=== PATIENT | male | born 1995 | race Caucasian/White ===

== ENCOUNTER 2024-04-21 02:35 | Inpatient (IN) | payer OTHER, SELFPAY ==
[2024-04-21] VITALS (31 sets, daily range): BP systolic 148–166; BP diastolic 80–102; PULSE 57–88; TEMP 36.4–36.8; O2SAT 65–100; BMI 27.4; BMI 26.3
--- NOTE | 2024-04-21 | XR_ITS ---
The [address] [address] Patient Name: MOHINI CABELLO MRN: [id number] date: 1995 Sex: M Assigned Patient Location: MS Current Patient Location: MS Accession/Order Number: [id number] Exam Date: 04/21/2024 16:53 Report Date: 04/21/2024 17:31 At the request of: SHAIKH LISSY Procedure: XR foreign body eye FUNMILAYO EXAM: XR foreign body eye FUNMILAYO HISTORY: foreign body for MRI COMPARISON: None. TECHNIQUE: Lateral, water's view orbits/facial bones. FINDINGS: No opaque orbital foreign body. Minor sinus mucosal thickening without fluid level. No suspicious bone lesion. XR/XR foreign body eye FUNMILAYO IMPRESSION: Negative for opaque orbital foreign body. Electronically authenticated by: STEVEN ARIAS Date: 04/21/2024 17:31
--- NOTE | 2024-04-21 02:51 | ECG_ITS ---
The [facility] Test Date: 2024-04-21 Pat Name: MOHINI CABELLO Department: Room: - Gender: Male [employer]: : 1995 Requested By: LINDY HURST Order Number: [id number] Reading MD: LINDY HURST Measurements Intervals [place] Rate: 67 P: 44 MN: 168 QRS: 50 QRSD: 84 T: 25 QT: 376 QTc: 392 Interpretive Statements 1100 Sinus rhythm 9110 normal ECG Compared to ECG 11/01/2022 12:20:29 No significant changes Electronically Signed On 04-21-2024 18:56:07 EDT by LINDY HURST
--- NOTE | 2024-04-21 02:52 | CT_ITS ---
The [address] [address] Patient Name: MOHINI CABELLO MRN: [id number] date: 1995 Sex: M Assigned Patient Location: ER Current Patient Location: ER Accession/Order Number: [id number] Exam Date: 04/21/2024 03:00 Report Date: 04/21/2024 03:20 At the request of: LION SOUZA Procedure: CT stroke head/brain wo con INDICATION: 29 years old; Male. Right leg weakness. History of prior surgery for intracranial tumor at 6 years of age. TECHNIQUE: CT Head (ax/cor/sag reformats). Ionizing radiation dose reduced via iterative reconstruction/FBP blend and body size kV/mA adjustment. Comparison: None FINDINGS: POSTOPERATIVE CHANGES: Patient is status post prior occipital and suboccipital craniectomy with encephalomalacia in the cerebellum. There is extensive dystrophic calcification within the cerebellum. This finding would be consistent with remote surgery and radiation therapy for previously described brain tumor. BRAIN PARENCHYMA: No intraparenchymal or extra-axial hemorrhage. No mass effect. No midline shift or herniation. Postoperative and posttreatment changes in the cerebellum as described above. Normal magdaleno/white differentiation. VENTRICLES/EXTRA-AXIAL SPACES: Ventricles and extra ventricular spaces are within normal limits. There is enlargement of the fourth ventricle consistent with postsurgical change with adjacent encephalomalacia. SINUSES/MASTOIDS: There is mucoperiosteal thickening throughout the paranasal sinuses. The maxillary sinuses are not completely included. Opacification of posterior ethmoid air cells is seen. Mastoids and middle ears are clear. MSK: No displaced or depressed calvarial fracture. Postoperative changes consistent with prior occipital/suboccipital decompression. OTHER: No hyperdense intraluminal thrombus is present. CT/CT stroke head/brain wo con IMPRESSION: 1. No acute intracranial abnormality. No hemorrhage or mass effect. 2. Findings consistent with postsurgical and posttreatment changes involving the cerebellum with prior occipital and suboccipital craniectomy, encephalomalacia within the cerebellum with enlargement of the fourth ventricle, and extensive dystrophic calcification in the cerebellar hemispheres. Electronically authenticated by: FREDY TRIPATHI Date: 04/21/2024 03:20
--- NOTE | 2024-04-21 02:52 | XR_ITS ---
The [address] [address] Patient Name: MOHINI CABELLO MRN: [id number] date: 1995 Sex: M Assigned Patient Location: ER Current Patient Location: MS Accession/Order Number: [id number] Exam Date: 04/21/2024 03:10 Report Date: 04/21/2024 06:58 At the request of: LION SOUZA Procedure: XR chest 1V EXAM: XR chest 1V HISTORY: poss cva COMPARISON: Chest radiographs dated 11/01/2022. TECHNIQUE: One view of the chest was obtained. FINDINGS: The cardiac silhouette is normal in size. There are mild left basilar opacities. There is no significant pneumothorax or pleural effusion. No acute osseous abnormality is seen. XR/XR chest 1V IMPRESSION: 1. Mild left basilar opacities are felt to represent atelectasis though aspiration changes and/or early infection could be present. Electronically authenticated by: Mello JOHNSON Date: 04/21/2024 06:58
[2024-04-21 02:54] LABS: Glucometer 166 mg/dL (74-106)
--- NOTE | 2024-04-21 02:58 | ED_ITS ---
HPI HPI - General Adult General Chief complaint: Headache Stated complaint: dizzy headache Time Seen by Provider: 04/21/24 02:37 Source: patient Mode of arrival: Wheelchair Limitations: no limitations History of Present Illness HPI narrative: 29-year-old male presents to the emergency department for a 4-hour history of weakness in his right leg. He states has been like this for the past 4 hours continuously and he does not have a headache. He has some tingling in his right arm but his right leg was weak and he was not able to stand and walk. He is brought in by his . 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 He has had no symptoms like this recently. No fever or trauma. He stopped his blood pressure medicine a few months ago. 5:00am more information has turned up. The patient now admits that she has been having symptoms like this all week, the last 5 or 6 days. He states that he would be walking and would accidentally bump his shoulder on the frame of the doorway. Also at 11:00 in the morning yesterday he had difficulty reaching for a bag at a drive-through fast food restaurant. Related Data Home Medications ?Medication ?Instructions ?Recorded ?Confirmed No Known Home Medications 04/21/24 04/21/24 Allergies Allergy/AdvReac Type Severity Reaction Status Date / Time No Known Drug Allergies Allergy Verified 04/21/24 02:45 Opioid HPI Opioid Management Most Recent Opioid Data: Last Pain Scale 8 04/21/24 03:55 Last ED Pain Assessment 04/21/24 03:30 Review of Systems ROS Narrative A ten point review of systems is negative except as noted above. Exam Narrative Exam Narrative: Nurses note and vital signs reviewed and patient is not hypoxic. General: The patient appears in no apparent distress. Patient is resting comfortably on cart. Skin: Warm, dry, no pallor noted. There is no rash noted. Head: Normocephalic, atraumatic Eye: Normal conjunctiva, no drainage, EOMI. PERRL Ears, Nose, Mouth, and Throat: oral mucosa is moist. Cardiovascular: Regular Rate and Rhythm Respiratory: Patient is in no distress, no accessory muscle use, lungs are clear to auscultation, no wheezing, rales or rhonchi Back: non-tender GI: Soft and nontender Musculoskeletal: The patient has no evidence of calf tenderness, no pitting edema, symmetrical pulses noted bilaterally Neurological: A&O x4, his speech is slightly slow and slightly thick. Hand g rasp, biceps, tricep strength is 5 out of 5 and symmetric. He has slightly diminished strength in all muscle groups in his right leg compared to the left. Psychiatric: Cooperative NIH score is 4. He has 1 point for right arm drift, 1 point for right leg drift, 2 points for limb ataxia, and 1 point for dysarthria. Constitutional Vital Signs, click to edit/add: Last Vital Signs Temp 97.5 F L 04/21/24 02:39 Pulse 70 04/21/24 03:40 Resp 12 04/21/24 03:40 BP 164/92 H 04/21/24 03:40 Pulse Ox 100 04/21/24 03:40 O2 Del Method Room Air 04/21/24 03:40 Course Vital Signs Vital signs: Vital Signs Temperature 97.5 F L 04/21/24 02:39 Pulse Rate 69 04/21/24 02:39 Respiratory Rate 18 04/21/24 02:39 Blood Pressure 160/100 H 04/21/24 02:39 Pulse Oximetry 100 04/21/24 02:39 Oxygen Delivery Method Room Air 04/21/24 02:39 Temperature 97.5 F L 04/21/24 02:39 Pulse Rate 70 04/21/24 03:40 Respiratory Rate 12 04/21/24 03:40 Blood Pressure 164/92 H 04/21/24 03:40 Pulse Oximetry 100 04/21/24 03:40 Oxygen Delivery Method Room Air 04/21/24 03:40 Medical Decision Making MDM Narrative Medical decision making narrative: Initially the patient reported that the symptoms began at 11 PM but it turns out he has been having symptoms like this for multiple days. CT brain shows postoperative changes but no acute findings. CTA was reviewed by teleneurologist from [facility]. He does not see any significant stenosis. Official reading from the radiologist is pending at the time of this dictation. The patient will be admitted at his request here and will have MRI later today. Findings are discussed with the patient and his . There is no indication for thrombolytic, his symptoms have been present for a few days.. Differential Diagnosis Differential Diagnosis: Intracranial hemorrhage, stroke Lab Data Lab results reviewed: Yes I reviewed the patient's lab results Labs: Lab Results 04/21/24 04/21/24 04/21/24 Range/Units 02:53 03:20 03:45 WBC 6.8 (4.0-11.0) 10^3/uL RBC 5.09 (4.70-6.10) 10^6/uL Hgb 14.4 (14.0-18.0) g/dL Hct 44.4 (42.0-54.0) % MCV 87.2 (80.0-94.0) fL MCH 28.3 (25.9-34.0) pg MCHC 32.4 (29.9-35.2) g/dL RDW 12.9 (11.0-15.0) % Plt Count 222 (150-450) 10^3/uL MPV 9.8 (9.5-13.5) fL Neut % (Auto) 54.5 (43.0-75.0) % Lymph % (Auto) 31.6 (20.5-60.0) % [place] % (Auto) 6.9 (1.7-12.0) % Eos % (Auto) 6.4 (0.9-7.0) % Baso % (Auto) 0.3 (0.2-2.0) % Neut # (Auto) 3.7 (1.4-6.5) 10^3/uL Lymph # (Auto) 2.1 (1.2-3.8) 10^3/uL [place] # (Auto) 0.5 (0.3-0.8) 10^3/uL Eos # (Auto) 0.4 (0.0-0.7) 10^3/uL Baso # (Auto) 0.0 (0.0-0.1) 10^3/uL Abs Immat Gran (auto) 0.02 (0.00-0.03) 10^3/uL Imm/Tot Granulo (auto) 0.3 (0.0-0.5) % PT 10.4 (9.0-11.6) sec INR 0.98 APTT 29.1 (22.3-36.2) sec Sodium 137 (136-145) mmol/L Potassium 4.0 (3.5-5.1) mmol/L Chloride 100 (98-107) mmol/L Carbon Dioxide 27.8 (21.0-32.0) mmol/L Anion Gap 13.2 BUN 13.0 (7.0-18.0) mg/dL Creatinine 0.96 (0.70-1.30) mg/dL Est GFR ( Amer) >60 (>=60) Est GFR (Non-Af Amer) >60 (>=60) BUN/Creatinine Ratio 13.5 Glucose 133 H (74-106) mg/dL Calcium 9.2 (8.5-10.1) mg/dL POC Glucose 166 H (74-106) mg/dL Imaging Data CT scan - head: Radiologist's impression: ITS Impressions Brain CT 04/21/24 02:52 IMPRESSION: 1. No acute intracranial abnormality. No hemorrhage or mass effect. 2. Findings consistent with postsurgical and posttreatment changes involving the cerebellum with prior occipital and suboccipital craniectomy, encephalomalacia within the cerebellum with enlargement of the fourth ventricle, and extensive dystrophic calcification in the cerebellar hemispheres. Electronically authenticated by: FREDY TRIPATHI Date: 04/21/2024 03:20 ECG Data Attestation: I personally reviewed and interpreted this ECG as follows: (EKG on my interpretation shows normal sinus rhythm with a rate of 67 and no acute change) Discharge Plan Discharge Chief Complaint: Headache Clinical Impression: Right leg weakness Patient Disposition: Admitted As Inpatient Time of Disposition Decision: 04:55 Condition: Fair
--- NOTE | 2024-04-21 03:25 | CT_ITS ---
The [address] [address] Patient Name: MOHINI CABELLO MRN: [id number] date: 1995 Sex: M Assigned Patient Location: ER Current Patient Location: MS Accession/Order Number: [id number] Exam Date: 04/21/2024 03:45 Report Date: 04/21/2024 07:08 At the request of: LION SOUZA Procedure: CT angio head EXAM: CT angio neck, CT angio head HISTORY: right leg weak COMPARISON: CT head performed contemporaneously and reported separately.. TECHNIQUE: Postcontrast CTA imaging of the head and neck was performed with coronal and sagittal reformats. Maximum intensity projection and 3-D reformats were performed on a separate workstation. NASCET criteria was utilized. This CT exam was performed using one or more of the following dose reduction techniques: Automated exposure control, adjustment of the MA and/or kV according to patient size, or use of iterative reconstruction technique. FINDINGS: Aortic arch: Imaged portion shows no evidence of aneurysm. No significant stenosis of the major origins of the major arch vessels. Right carotid system: No evidence of significant (50% or greater) stenosis or occlusion. Left carotid system: No evidence of significant (50% or greater) stenosis or occlusion. Vertebral arteries: Left vertebral artery dominance. No evidence of significant (50% or greater) stenosis or occlusion. Anterior circulation: No evidence of aneurysm, significant stenosis, or occlusion. Vertebrobasilar system: No evidence of aneurysm. 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 The posterior inferior cerebellar artery is not visualized. This may be chronic in nature given associated postsurgical change of the cerebellum with dystrophic calcifications and prior suboccipital craniotomy. Venous sinuses: Grossly patent. Additional findings: Visualized portion of the lungs are clear. Moderate mucosal thickening of the paranasal sinuses. CT/CT angio head IMPRESSION: 1. 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 The right posterior inferior cerebellar artery is not visualized. This may be chronic in nature given associated postsurgical change of the cerebellum with dystrophic calcifications and prior suboccipital craniotomy. 2. No large vessel occlusion, hemodynamically significant stenosis or aneurysm involving the remaining neck or intracranial arteries. Electronically authenticated by: MIMI PERRY Date: 04/21/2024 07:08
--- NOTE | 2024-04-21 03:25 | CT_ITS ---
The [address] [address] Patient Name: MOHINI CABELLO MRN: [id number] date: 1995 Sex: M Assigned Patient Location: ER Current Patient Location: MS Accession/Order Number: [id number] Exam Date: 04/21/2024 03:45 Report Date: 04/21/2024 07:08 At the request of: LION SOUZA Procedure: CT angio neck EXAM: CT angio neck, CT angio head HISTORY: right leg weak COMPARISON: CT head performed contemporaneously and reported separately.. TECHNIQUE: Postcontrast CTA imaging of the head and neck was performed with coronal and sagittal reformats. Maximum intensity projection and 3-D reformats were performed on a separate workstation. NASCET criteria was utilized. This CT exam was performed using one or more of the following dose reduction techniques: Automated exposure control, adjustment of the MA and/or kV according to patient size, or use of iterative reconstruction technique. FINDINGS: Aortic arch: Imaged portion shows no evidence of aneurysm. No significant stenosis of the major origins of the major arch vessels. Right carotid system: No evidence of significant (50% or greater) stenosis or occlusion. Left carotid system: No evidence of significant (50% or greater) stenosis or occlusion. Vertebral arteries: Left vertebral artery dominance. No evidence of significant (50% or greater) stenosis or occlusion. Anterior circulation: No evidence of aneurysm, significant stenosis, or occlusion. Vertebrobasilar system: No evidence of aneurysm. 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 The posterior inferior cerebellar artery is not visualized. This may be chronic in nature given associated postsurgical change of the cerebellum with dystrophic calcifications and prior suboccipital craniotomy. Venous sinuses: Grossly patent. Additional findings: Visualized portion of the lungs are clear. Moderate mucosal thickening of the paranasal sinuses. CT/CT angio neck IMPRESSION: 1. 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 The right posterior inferior cerebellar artery is not visualized. This may be chronic in nature given associated postsurgical change of the cerebellum with dystrophic calcifications and prior suboccipital craniotomy. 2. No large vessel occlusion, hemodynamically significant stenosis or aneurysm involving the remaining neck or intracranial arteries. Electronically authenticated by: MIMI PERRY Date: 04/21/2024 07:08
[2024-04-21 03:34] LABS: Basophils Percent Auto 0.3 % (0.2-2.0); Eosinophils Absolute Auto 0.4 10^3/uL (0.0-0.7); Eosinophils Percent Auto 6.4 % (0.9-7.0); Hematocrit 44.4 % (42.0-54.0); Hemoglobin 14.4 g/dL (14.0-18.0); Immature Granulocytes Abs Auto 0.02 10^3/uL (0.00-0.03); Immature Granulocytes Pct Auto 0.3 % (0.0-0.5); Lymphocytes Absolute Auto 2.1 10^3/uL (1.2-3.8); Lymphocytes Percent Auto 31.6 % (20.5-60.0); Mean Corpuscular HGB Conc 32.4 g/dL (29.9-35.2); Mean Corpuscular Hemoglobin 28.3 pg (25.9-34.0); Mean Corpuscular Volume 87.2 fL (80.0-94.0); Mean Platelet Volume 9.8 fL (9.5-13.5); Monocytes Absolute Auto 0.5 10^3/uL (0.3-0.8); Monocytes Percent Auto 6.9 % (1.7-12.0); Neutrophils Absolute Auto 3.7 10^3/uL (1.4-6.5); Neutrophils Percent Auto 54.5 % (43.0-75.0); Platelet Count 222 10^3/uL (150-450); Red Blood Count 5.09 10^6/uL (4.70-6.10); Red Cell Distribution Width 12.9 % (11.0-15.0); White Blood Count 6.8 10^3/uL (4.0-11.0)
[2024-04-21 03:44] LABS: Anion Gap 13.2; BUN Creatinine Ratio 13.5; Calcium 9.2 mg/dL (8.5-10.1); Carbon Dioxide 27.8 mmol/L (21.0-32.0); Chloride 100 mmol/L (98-107); Estimated GFR (African America >60 (>=60); Estimated GFR (Non-African Ame >60 (>=60); Glucose 133 mg/dL (74-106); Sodium 137 mmol/L (136-145)
[2024-04-21 04:11] LABS: INR 0.98; Partial Thromboplastin Time 29.1 sec (22.3-36.2); Prothrombin Time 10.4 sec (9.0-11.6)
--- NOTE | 2024-04-21 05:31 | MR_ITS ---
[address] [address] Patient Name: MOHINI CABELLO MRN: [id number] date: 1995 Sex: M Assigned Patient Location: MS Current Patient Location: MS Accession/Order Number: [id number] Exam Date: 04/21/2024 17:00 Report Date: 04/21/2024 18:38 At the request of: TOM CASTILLO Procedure: MR head/brain wo/w con MRI BRAIN with and without IV contrast CONTRAST. INDICATION: New onset headache. Strokes symptoms. COMPARISON: None available. TECHNIQUE: MR imaging of the brain using: Axial diffusion, axial FLAIR, axial T2 weighted, coronal and sagittal T1, coronal gradient-echo T2. After IV administration of gadolinium based contrast agent, axial, sagittal and coronal T1 weighted SPGR images were obtained. . FINDINGS: EXTRA-AXIAL SPACE:Age appropriate ventricles. No extra-axial collection. No abnormal extra-axial enhancement. CEREBRUM: No signal abnormality. No areas of restricted diffusion. No acute infarct, hemorrhage or mass. No abnormal enhancement. CEREBELLUM: No acute effusion. Bilateral cerebellar calcifications.. . No abnormal enhancement. BRAINSTEM: There is a focal area with restricted diffusion in the left ventral jim measuring approximately 4 mm. There is surrounding increased T2 FLAIR signal within the jim and midbrain. No acute hemorrhage or mass effect. There is associated curvilinear enhancement. No definite enhancing mass. EXTRACRANIAL STRUCTURES:There is mucosal thickening of the paranasal sinuses. Mastoid air cells are clear. Globes and orbits are normal. Normal pituitary gland. Normal calvarium. MR/MR head/brain wo/w con IMPRESSION: Abnormal signal change in the left jim and midbrain with focal restricted diffusion and mild enhancement which may represent a late acute infarct or demyelinating disease. Recommend follow-up imaging. Electronically authenticated by: BOBBY MOORE Date: 04/21/2024 18:38
[2024-04-21] MEDS: MORPHINE SULFATE 4 MG/ML VIAL IV (05:54)
[2024-04-21 06:44] LABS: Chol HDL Ratio 3.8; Cholesterol 248 mg/dL (<=200); HDL Cholesterol 65 mg/dL (40-60); Triglycerides 89 mg/dL (<=150); VLDL CHOLESTEROL 17.8 mg/dL
[2024-04-21 06:57] LABS: Estimated Average Glucose 114 mg/dL; Glycohemoglobin A1C 5.6 % (4.5-6.2)
[2024-04-21] MEDS: ASPIRIN 81 MG TAB.CHEW PO ×2 (07:08→09:58)
[2024-04-21] MEDS: LISINOPRIL 10 MG TABLET PO (09:58)
--- NOTE | 2024-04-21 10:17 | PC.NURSE ---
dr gilliland completed telestroke consult via telephone at this time with dr torres
--- NOTE | 2024-04-21 12:00 | P.HP_ITS ---
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 According to the patient he noted about a month ago that he was dragging his right leg and that his leg felt weak his weakness has progressively gotten worse. He denies upper extremity weakness or numbness but feels that his overall strength has decreased. He also reported right-sided facial numbness and changes in his speech pattern that started yesterday. Patient also was experiencing a headache that is now resolved. He was noted to have unequal pupil which patient was previously unaware of. Patient denies previous history of ophthalmology trauma or surgery. Overnight CTH/CTA head/neck was performed that did not show any sig abnormality. Tele stroke on board. MRI brain is pending. Patient started on ASA, lipitor Opioid HPI Opioid Management Most Recent Pain and Opioid Data: Last Pain Scale 0 04/21/24 11:39 Last Pain Assessment 04/21/24 11:39 Last ED Pain Assessment 04/21/24 03:30 Last ORT Total Score 0 04/21/24 06:27 Last ORT Risk Category Low Risk 04/21/24 06:27 Review of Systems ROS Status of ROS 10 or more systems reviewed and unremark able except as noted in history and below [facility] History (Updated 04/21/24 @ 12:10 by Shaikh Nivia MD) HLD (hyperlipidemia) ?E78.5 - Hyperlipidemia, unspecified (ICD-10) Hypertension ?I10 - Essential (primary) hypertension (ICD-10) Surgical History (Updated 04/21/24 @ 09:52 by Deanna Chauhan LPN) H/O craniotomy ?Z98.890 - Other specified postprocedural states (ICD-10) Family History (Updated 04/21/24 @ 09:51 by Deanna Chauhan LPN) Mother Family history of cancer Grandmother Family history of cancer Father Family history of diabetes mellitus Family history of hypertension Grandfather Family history of myocardial infarction Social History (Updated 04/21/24 @ 09:54 by Deanna Chauhan LPN) Within the past year, how often did you have a drink containing alcohol: monthly or less Within the past year, how many standard drinks containing alcohol did you have on a typical day: 1 or 2 Within the past year, how often did you have six or more drinks on one occasion: never Total score: 0 Score interpretation: A score less than 4 is consistent with normal alcohol consumption. Smoking status: Never smoker Second hand tobacco smoke exposure: No Non-prescribed substance use: denies use Previous occupational history: maintenance Highest level of school completed/degree received: Associate degree: academic program Are you now , , , , never or living with a partner: In a typical week, how many times do you talk on the telephone with family, friends, or neighbors: 3 or more times per week How often do you get together with friends or relatives: 3 or more times per week How often do you attend muslim or gnosticist services: never Do you belong to any clubs or organizations such as muslim groups unions, [employer] or athletic groups, or school groups: no Total score: 2 Score interpretation: A score of greater than or equal to 2 indicates the lowest level of social isolation. Little interest or pleasure in doing things: not at all Feeling down, depressed, or hopeless: not at all Feel stressed/tense/nervous/anxious/difficulty sleeping: not at all Due to disability, difficulty making decisions: No Do you think of yourself as: straight/heterosexual Gender Identity: male Meds Home Medications and Allergies Home Medications ?Medication ?Instructions ?Recorded ?Confirmed ?Type lisinopril 10 mg tablet 10 mg PO .QD 04/21/24 04/21/24 History Allergies Allergy/AdvReac Type Severity Reaction Status Date / Time No Known Drug Allergies Allergy Verified 04/21/24 02:45 Exam Constitutional Vital Signs, click to edit/add: Last Vital Signs Temp 97.6 F 04/21/24 07:40 Pulse 75 04/21/24 11:56 Resp 16 04/21/24 11:56 BP 166/80 H 04/21/24 11:56 Pulse Ox 98 04/21/24 11:56 O2 Del Method Room Air 04/21/24 11:56 Common normals: no apparent distress and oriented x3 General appearance: cooperative and comfortable Eye Other: unequal pupils, left pupil is about 5 mm, right pupil 3 mm Respiratory Common normals: normal respiratory effort, no use of accessory muscles and clear to auscultation bilaterally Effort & inspection: able to speak in complete sentences Cardio Common normals: no JVD, regular rate, regular rhythm, S1 normal heart sound and S2 normal heart sound GI Common normals: Normal to inspection, nondistended, normoactive bowel sounds present, soft to palpation, non-tender and no hepatosplenomegaly Extremity Common normals: normal to inspection and full ROM Neuro Common normals: oriented x3, moves all extremities and no sensory deficits noted Coordination/balance: [id number] test normal and Romberg test positive Speech: abnormal speech Gait (neuro): ataxic Motor exam: strength abnormal right lower extremity 4 / 5 Results Labs Labs: Short CBC 04/21/24 Range/Units 03:20 WBC 6.8 (4.0-11.0) 10^3/uL Hgb 14.4 (14.0-18.0) g/dL Hct 44.4 (42.0-54.0) % Plt Count 222 (150-450) 10^3/uL BMP 04/21/24 03:20 Sodium 137 Potassium 4.0 Chloride 100 Carbon Dioxide 27.8 BUN 13.0 Creatinine 0.96 Glucose 133 H Calcium 9.2 Assessment and Plan Assessment and Plan (1) Neurological deficit present: Assessment and Plan: No acute finding on CTH/CTA head/neck. Ataxic gait, slightly dysarthric speech as per patient. There is also mild RLE weakness. Normal B12,folate. Tele stroke on board. MRI brain is pending. Started on ASA, lipitor. (2) Hypertension: Assessment and Plan: resume lisinopril will likely needs to be adjusted as outpatient. Qualifiers: Hypertension type: primary hypertension Qualified Code(s): I10 - Essential (primary) hypertension (3) HLD (hyperlipidemia): Assessment and Plan: started on lipitor for HLD. Qualifiers: Hyperlipidemia type: mixed hyperlipidemia Qualified Code(s): E78.2 - Mixed hyperlipidemia
--- NOTE | 2024-04-21 18:36 | PC.NURSE ---
pt complaint of feeling like its hard to swallow and that he has to really focus to be able to swallow proplerly. notified dr gilliland. physician placing orders.
[2024-04-21] MEDS: LACTATED RINGER'S SOLUTION 1,000 ML 125 ML IV (18:46)
--- NOTE | 2024-04-21 19:06 | PC.NURSE ---
notified physician and telestroke of mri results. physician notfied family and to discuss with tele nuero plan of care.
[2024-04-21] MEDS: ACETAMINOPHEN 1,000 MG/100 ML PREMIX 400 MG IV (21:34)
[2024-04-22] VITALS (12 sets, daily range): BP systolic 154–170; BP diastolic 77–91; PULSE 59–103; TEMP 36.4–37.8; O2SAT 94–100
[2024-04-22] MEDS: ACETAMINOPHEN 1,000 MG/100 ML PREMIX 100 MG IV ×2 (02:55→09:01)
[2024-04-22] MEDS: LACTATED RINGER'S SOLUTION 1,000 ML 125 ML IV ×2 (02:56→11:50)
[2024-04-22 06:09] LABS: Basophils Percent Auto 0.3 % (0.2-2.0); Eosinophils Absolute Auto 0.4 10^3/uL (0.0-0.7); Eosinophils Percent Auto 5.8 % (0.9-7.0); Hematocrit 42.5 % (42.0-54.0); Hemoglobin 13.9 g/dL (14.0-18.0); Immature Granulocytes Abs Auto 0.02 10^3/uL (0.00-0.03); Immature Granulocytes Pct Auto 0.3 % (0.0-0.5); Lymphocytes Absolute Auto 2.3 10^3/uL (1.2-3.8); Lymphocytes Percent Auto 31.1 % (20.5-60.0); Mean Corpuscular HGB Conc 32.7 g/dL (29.9-35.2); Mean Corpuscular Hemoglobin 28.3 pg (25.9-34.0); Mean Corpuscular Volume 86.6 fL (80.0-94.0); Mean Platelet Volume 9.9 fL (9.5-13.5); Monocytes Absolute Auto 0.7 10^3/uL (0.3-0.8); Monocytes Percent Auto 9.7 % (1.7-12.0); Neutrophils Absolute Auto 3.9 10^3/uL (1.4-6.5); Neutrophils Percent Auto 52.8 % (43.0-75.0); Platelet Count 234 10^3/uL (150-450); Red Blood Count 4.91 10^6/uL (4.70-6.10); Red Cell Distribution Width 13.2 % (11.0-15.0); White Blood Count 7.4 10^3/uL (4.0-11.0)
[2024-04-22 06:18] LABS: Alanine Aminotransferase 26 U/L (16-63); Albumin Globulin Ratio 1.1; Albumin Level 3.6 g/dL (3.4-5.0); Alkaline Phosphatase 71 U/L (46-116); Anion Gap 11.6; Aspartate Amino Transferase 15 U/L (15-37); BUN Creatinine Ratio 10.7; Bilirubin Total 0.4 mg/dL (0.2-1.0); Carbon Dioxide 28.2 mmol/L (21.0-32.0); Chloride 102 mmol/L (98-107); Estimated GFR (African America >60 (>=60); Estimated GFR (Non-African Ame >60 (>=60); Globulin 3.2 g/dL; Glucose 101 mg/dL (74-106); Magnesium 1.9 mg/dL (1.8-2.4); Phosphorus 3.5 mg/dL (2.6-4.7); Potassium 3.8 mmol/L (3.5-5.1); Sodium 138 mmol/L (136-145); Total Protein 6.8 g/dL (6.4-8.2)
--- OUTSIDE RECORDS SUMMARY | 2024-04-22 06:53 | XMS_ITS | CCD ---
Author Organization [facility] Inform ion Partnership [facility] Care Team Providers Care Beef Breaker Name Role Phone Kristine Diaz Unavailable DR EMILIANO JOEL V Consulting Unavailable DR LINDY HURST Primary Care Unavailable JOSE SPRINGER Admitting Unavailable JOSE SPRINGER Attending Unavailable TAMIKA GARCIA Consulting Unavailabl e JOSE SPRINGER Consulting Unavailable Medications Current Medications Medication Drug Class(es) Dates Sig (Normalized) Sig (Original) amoxicillin 500 mg oral capsule (1 source) Penicillin-class Antibacterial Start: 11-20-2023 take 500 mg by mouth three times daily Amoxicillin Active 500 MG PO Three times daily 03 07November 20, 2023 12:00am dexamethasone 1 mg/ml / tobramycin 3 mg/ml ophthalmic suspension (1 source) Aminoglycoside Antibacterial, Corticosteroid Start: 09-20-2022 take 1 drop(s) into the eye(s) every six hours Tobramycin-Dexame thasone 0.3-0.1 % 1 drop into affected eye Ophthalmic every 6 hrs for 7 days Sep, Active Completed/Discontinued Medications Medication Drug Class(es) Dates Sig (Normalized) Sig (Original) Triamcinolone (1 source) Corticosteroid Start: 03-12-2019 MONY - 10 m g Mar, 60 mg Problems Problem Classification Problem Date Documented Da te Episodic/Chronic Cancer of brain and nervous system (1 source) Personal history of malignant neoplasm of brain; Translations: [PERSONAL HX MALIG NEOPLASM BRAIN] Onset: 11-02-2022 Episodic Inflammation; infection of eye (except that caused by tuberculosis or sexually transmitteddisease) (1 source) Unspecified acute conjunctivitis, bilateral Episodic Nonspecific chest pain (4 sources) Chest pain, unspecified; Translations: [CHEST PAIN UNSPECIFIED] Onset: 11-01-2022 Episodic Pleurisy; pneumothorax; pulmonary collapse (1 source) Pleurisy; Translations: [PLEURISY] Onset: 11-02-2022 Episodic Unclassified (1 source) COUGH, UNSPECIFIED; Translations: [COUGH, UNSPECIFIED] Onset: 11-02-2022 Results Test Name Value Interpretation Reference Range Facility No Panel InformationOrdered By: Sonia King on 11-20-2023 Quick Strep (POC) [facility] CARDIAC ALFREDO ADMITon 023 CK [Catalytic activity/Vol] 251 U/L Normal 39-308 [facility] Comment on above: Performed By: #### C POLINA, CMADM #### [facility] [address] [place] [address] Dr. Birgit Erickson CK.MB [Mass/Vol] 1.83 ng/mL Normal <=3.60 [facility] Comment on above: Performed By: #### C VALORIE FISH #### [facility] [address] [place] [address] Dr. Birgit Erickson HSTROP 4.3 pg/mL Normal 4.0-76.1 [facility] Comment on above: Result Comment: CUT- OFF POINTS HAVE BEEN ESTABLISHED BASED ON THE FOURTH UNIVERSAL DEFINITIONS OF MYOCARDIAL INFARCTION. THE UPPER REFERENCE LIMIT (URL) OF TROPONIN, DEFINED THE 99TH PERCENTILE OF cTnI DISTRIBUTION IN A REFERENCE POPULATION, HAS BEEN CONFIRMED THE DECISION THRESHOLD FOR NE DIAGNOSIS. Performed By: #### C POLINA, MARSHADM #### [facility] [address] [place] [address] Dr. Birgit Erickson MODESTA 43 ng/mL Normal 16-96 [facility] Comment on above: Performed By: #### C POLINA, MARSHADM #### [facility] [address] [place] [address] Dr. Birgit Erickson CBC AUTO DIFFon 11-01-2022 BASO # 0.0 103/ul Normal 0.0-0.1 [facility] Comment on above: Performed By: #### C BC #### [facility] [address] [place] [address] Dr. Birgit Erickson Basophils/100 WBC (Bld) 0.1 % Critically low 0.2-2.0 [facility] Comment on above: Performed By: #### C BC #### [facility] [address] [place] [address] Dr. Birgit Erickson EO # 0.2 103/ul Normal 0.0-0.7 [facility] Comment on above: Performed By: #### C BC #### [facility] [address] [place] [address] Dr. Birgit Erickson Eosinophils/100 WBC (Bld) 2.8 % Normal 0.9-7.0 [facility] Comment on above: Performed By: #### C BC #### [facility] [address] [place] [address] Dr. Birgit Erickson Erythrocyte distribution width (RBC) [Ratio] 12.6 % Normal 11.0-15.0 [facility] Comment on above: Performed By: #### C BC #### [facility] [address] [place] [address] Dr. Birgit Erickson Hematocrit (Bld) [Volume fraction] 38.5 % Critically low 42.0-54.0 [facility] Comment on above: Performed By: #### C BC #### [facility] [address] [place] [address] Dr. Birgit Erickson Hemoglobin (Bld) [Mass/Vol] 13.5 g/dL Critically low 14.0-18.0 [facility] Comment on above: Performed By: #### C BC #### [facility] [address] [place] [address] Dr. Birgit Erickson IG # 0.02 10e3/ul Normal 0.00-0.03 [facility] Comment on above: Performed By: #### C BC #### [facility] [address] [place] [address] Dr. Birgit Erickson IG % 0.3 % Normal 0.0-0.5 [facility] Comment on above: Performed By: #### C BC #### [facility] [address] [place] [address] Dr. Birgit Erickson LYMPH # 1.8 103/ul Normal 1.2-3.8 [facility] Comment on above: Performed By: #### C BC #### [facility] [address] [place] [address] Dr. Birgit Erickson Lymphocytes/100 WBC (Bld) 26.5 % Normal 20.5-60.0 [facility] Comment on above: Performed By: #### C BC #### [facility] [address] [place] [address] Dr. Birgit Erickson MANUAL DIFF REQ NO Normal [facility] Comment on above: Performed By: #### C BC #### [facility] [address] [place] [address] Dr. Birgit Erickson MCH (RBC) [Entitic mass] 28.6 pg Normal 25.9-34.0 [facility] Comment on above: Performed By: #### C BC #### [facility] [address] [place] [address] Dr. Birgit Erickson MCHC (RBC) [Mass/Vol] 35.1 g/dL Normal 29.9-35.2 [facility] Comment on above: Performed By: #### C BC #### [facility] [address] [place] [address] Dr. Birgit Erickson MCV (RBC) [Entitic vol] 81.6 fL Normal 80.0-94.0 [facility] Comment on above: Performed By: #### C BC #### [facility] [address] [place] [address] Dr. Birgit Erickson MONO # 0.5 103/ul Normal 0.3-0.8 [facility] Comment on above: Performed By: #### C BC #### [facility] [address] [place] [address] Dr. Birgit Erickson Monocytes/100 WBC (Bld) 7.6 % Normal 1.7-12.0 [facility] Comment on above: Performed By: #### C BC #### [facility] [address] [place] [address] Dr. Birgit Erickson NEUT # 4.2 103/ul Normal 1.4-6.5 [facility] Comment on above: Performed By: #### C BC #### [facility] [address] [address] [address] Birgit Erickson Neutrophils/100 WBC (Bld) 62.7 % Normal 43.0-75.0 [facility] Comment on above: Performed By: #### C BC #### [facility] [address] [place] [address] Dr. Birgit Erickson Platelet mean volume (Bld) [Entitic vol] 9.5 fL Normal 9.5-13.5 [facility] Comment on above: Performed By: #### C BC #### [facility] [address] [place] [address] Dr. Birgit Erickson PLT 226 103/ul Normal 150-450 [facility] Comment on above: Performed By: #### C BC #### [facility] [address] [place] [address] Dr. Birgit Erickson RBC 4.72 106/ul Normal 4.70-6.10 [facility] Comment on above: Performed By: #### C BC #### [facility] [address] [place] [address] Dr. Birgit Erickson WBC 6.8 103/ul Normal 4.0-11.0 [facility] Comment on above: Performed By: #### C BC #### [facility] [address] [place] [address] Dr. Birgit Erickson PROF 14(COMP METB)on 023 Albumin [Mass/Vol] 4.2 g/dL Normal 3.4-5.0 [facility] Comment on above: Performed By: #### C VALORIE FISH #### [facility] [address] [place] [address] Dr. Birgit Erickson Albumin/Globulin [Mass ratio] 1.3 {ratio} Normal [facility] Comment on above: Performed By: #### C VALORIE FISH #### [facility] [address] [place] [address] Dr. Birgit Erickson ALP [Catalytic activity/Vol] 84 U/L Normal 46-116 [facility] Comment on above: Performed By: #### C VALORIE FISH #### [facility] [address] [address] [address] Birgit Erickson ALT [Catalytic activity/Vol] 28 U/L Normal 16-63 [facility] Comment on above: Performed By: #### C POLINA, MARSHADM #### [facility] [address] [address] [address] Birgit Erickson Anion gap [Moles/Vol] 10.5 mmol/L Normal [facility] Comment on above: Performed By: #### C POLINA, CMADM #### [facility] [address] [place] [address] Dr. Birgit Erickson AST [Catalytic activity/Vol] 23 U/L Normal 15-37 [facility] Comment on above: Performed By: #### C POLINA, MARSHADM #### [facility] [address] [place] [address] Dr. Birgit Erickson Bilirubin [Mass/Vol] 0.3 mg/dL Normal 0.2-1.0 [facility] Comment on above: Performed By: #### C POLINA, MARSHADM #### [facility] [address] [place] [address] Dr. Birgit Erickson Calcium [Mass/Vol] 8.6 mg/dL Normal 8.5-10.1 [facility] Comment on above: Performed By: #### C POLINA, MARSHADM #### [facility] [address] [place] [address] Dr. Birgit Erickson Chloride [Moles/Vol] 101 mmol/L Normal 98-107 [facility] Comment on above: Performed By: #### C POLINA, CMADM #### [facility] [address] [place] [address] Dr. Birgit Erickson CO2 [Moles/Vol] 28.8 mmol/L Normal 21.0-32.0 [facility] Comment on above: Performed By: #### C POLINA, MARSHADM #### [facility] [address] [place] [address] Dr. Birgit Erickson Creatinine [Mass/Vol] 0.84 mg/dL Normal 0.70-1.30 [facility] Comment on above: Performed By: #### C POLINA, CMADM #### [facility] [address] [address] [address] Birgit Erickson EGFR-AF SERBIAN >60 Normal >=60 [facility] Comment on above: Performed By: #### C MP, CMADM #### [facility] [address] [address] [address] Birgit Erickson EGFR-NON AF SERBIAN >60 Normal >=60 [facility] Comment on above: Performed By: #### C MP, CMADM #### [facility] [address] [address] [address] Birgit Erickson Globulin (S) [Mass/Vol] 3.2 g/dL Normal [facility] Comment on above: Performed By: #### C POLINA, CMADM #### [facility] [address] [address] [address] Birgit Erickson Glucose [Mass/Vol] 123 mg/dL Critically high 74-106 [facility] Comment on above: Performed By: #### C POLINA, CMADM #### [facility] [address] [address] [address] Birgit Erickson Potassium [Moles/Vol] 3.3 mmol/L Critically low 3.5-5.1 [facility] Comment on above: Performed By: #### C POLINA, CMADM #### [facility] [address] [address] [address] Birgit Erickson Protein [Mass/Vol] 7.4 g/dL Normal 6.4-8.2 [facility] Comment on above: Performed By: #### C MP, CMADM #### [facility] [address] [address] [address] Birgit Erickson Sodium [Moles/Vol] 137 mmol/L Normal 136-145 [facility] Comment on above: Performed By: #### C MP, CMADM #### [facility] [address] [address] [address] Birgit Erickson Urea nitrogen [Mass/Vol] 10.0 mg/dL Normal 7.0-18.0 [facility] Comment on above: Performed By: #### C MP, CMADM #### [facility] [address] [place], [place] [address] Dr. Birgit Erickson Urea nitrogen/Creatinine [Mass ratio] 11.9 mg/mg Normal [facility] Comment on above: Performed By: #### C VALORIE FISH #### [facility] [address] [place], [place] [address] Dr. Birgit Erickson XR CHEST 2 Von 11-01-2022 XR CHEST 2 V EXAMINATION: XR CHEST 2 V HISTORY: Chest pain COMPARISON: No relevant comparison available. TECHNIQUE: PA and lateral FINDINGS: LUNGS: No significant pulmonary parenchymal abnormalities. VASCULATURE: No increased pulmonary vasculature. PLEURA: No pneumothorax, effusion, or pleural thickening. CARDIAC: No cardiomegaly or cardiac silhouette abnormality. MEDIASTINUM: No visible mass or adenopathy. BONES: No fracture or visible bone lesion. OTHER: Negative. IMPRESSION: No acute disease. Electronically authenticated by: EMILIANO JOEL Date: 2022-11-01 13:06 Normal [facility] Vital Signs Date Time Vital Sign Value Performing Clinician Facility 11-20-2023 18:07-0400 Body height 172.72 cm [facility] 11-20-2023 18:07-0400 Body mass index (BMI) [Ratio] 26.4 kg/m2 [facility] 11-20-2023 18:07-0400 Body temperature 99.5 [degF] [facility] 11-20-2023 18:07-0400 Body weight 78.98 kg [facility] 11-20-2023 18:07-0400 Heart rate 94 /min [facility] 11-20-2023 18:07-0400 Respiratory rate 18 /min [facility] 11-20-2023 18:07-0400 SaO2% (BldA) [Mass fraction] 97 % [facility] 09-20-2022 10:45-0500 Body height 170.18 cm Kristine Diaz Other [facility] Other 09-20-2022 10:45-0500 Body mass index (BMI) [Ratio] 28.19 kg/m2 Kristine Diaz Other [facility] Other 09-20-2022 10:45-0500 Body temperature 98 [degF] Kristine Diaz Other [facility] Other 09-20-2022 10:45-0500 Body weight 81.65 kg Kristine Padillaler Other [facility] Other 09-20-2022 10:45-0500 Respiratory rate 18 /min Kristine Diaz Other [facility] Other 09-20-2022 10:45-0500 SaO2% (BldA) [Mass fraction] 99 % Kristine Diaz Other [facility] Other Encounters Encounter Date Encounter Type Care Provider Facility Start: 04-21-2024 End: 04-21-2024 Emergency department patient visit [facility] Start: 11-20-2023 End: 11-20-2023 ambulatory [facility] Work Phone: Start: 11-20-2023 End: 11-20-2023 Patient encounter procedure [facility] Work Phone: Start: 11-01-2022 End: 11-01-[address] EMILIANO JOEL Facility: Start: 09-20-2022 End: 09-20-2022 ambulatory Kristine Diaz Other [employer] Other Start: 09-20-2022 Office outpatient ne w 20 minutes Kristine Diaz [facility] Procedures Date Procedure Procedure Detail Performing Clinician Start: 11-20-2023 Quick Strep (POC) Payers Date Payer Category Payer Unknown [id number] 1958 Private Health Insurance [id number] Social History Date Type Detail Facility Unknown if ever smoked [facility] Other Sex Assigned At Sex Assigned At Bir th [facility] [facility] Other Start: 11-20-2023 Tobacco smoking status NHIS Never smoked tobacco (finding) [facility] Start: 1995 Sex Assigned At Male F [facility] Evaluation note 09-20-2022 Note Date & Type Note Facility 09-20-2022 Evaluation note Encounter Date Diagnosis Assessment Notes Sep, Acute bacterial conjunctivitis of both eyes (ICD-10 - H10.33) Discussed diagnosis with patient. Advised to use eye drops as prescribed, discussed proper administration. Contagious until after 24 hours on antibiotic eye drops. Advised good hand hygiene and infection control, wash linens and bedding, do not touch eye directly with eye drop bottle, wipe off bottle after every use, do not share eye drop bottles. Apply cool compress to eye several times a day, clean eye with warm, most cloth from inner to outer canthus. Encouraged use of Zyrtec/Claritin to help with swelling, itching. Eye symptoms should improve in 2-3 days with treatment, if no improvement follow up with PCP or UC. Immediate eval if symptoms worsen, eye pain, vision changes, redness and swelling occur around the eye, headache, fever, N/V or any other concerning symptoms. Patient verbalizes understanding and is agreeable to treatment plan [facility] [facility] Other Evaluation note Note Date & Type Note Facility Evaluation note No assessment information availa ble [facility] Work Phone: History general Narrative - Reported Note Date & Type Note Facility History general Narrative - Reported Type Medical History brain cancer as child Surgical History brain surgery Hospitalization History see above [facility] Other Summary Purpose Family History No Family History Records Found Relationship Condition Age at Onset Recorded Date/T kole father Hypertension Unknown Not Specified Malignant neoplasm Unknown Advance Directives No Advanced Directives Records Found Advance Directive Response Recorded Date/ Time Advance Directives No November 19, 024 6:00pm Chief Complaint and Reason for Visit Chief Complaint lump on left side of throat Additional Source Comments REASON FOR VISIT (unrecogniz ed section and content) pink eye both eyes (unrecognized sect ion and content) No Status Records FoundNo Status Records Found INFORMATION SOURCE (unrecogn ized section and content) DATE CREATED AUTHOR 11/03/2022 [facility] DATE CREATED AUTHOR AUTHOR'S ORGANDARCIE ATION 04/22/2024 [facility] Care Teams (unrecognized sec tion and content) Team Status: Active Member Role Status Dates PHYSICIAN NO FAMILY Primary Care Provider Active Team Status: Inactive Member Role Status Dates PHYSICIAN NO FAMILY Primary Care Provider Active Start: November 20, 2023 End: November 20, 2023 Alise Gonzales APRN Active Start: November 20, 2023 End: November 20, 2023 SARAH Minaya Attending Provider Active S tart: November 20, 2023 End: November 20, 2023 Goals (unrecognized section and content) Goals may be documented in a n alternate section FOR RECORDS PERTAINING TO PATIENTS WHO ARE OR HAVE BEEN ENROLLED IN A CHEMICAL DEPENDENCY/SUBSTANCEABUSE PROGRAM, SOME INFORMATION MAY BE OMITTED. This clinical summary was aggregated from multiple sources. Caution should be exercised in using it in the provision of clinical care. This summary normalizes information from multiple sources, and as a consequence, information in this document may materially change the coding, format and clinical context of patient data. In addition, data may be omitted in some cases. CLINICAL DECISIONS SHOULD BE BASED ON THE PRIMARY CLINICAL RECORDS. [employer] [facility]. provides no warranty or guarantee of the accuracy or completeness of information in this document.
[2024-04-22] MEDS: HYDROMORPHONE HCL 0.5 MG/0.5 ML SYRINGE IVP (07:43)
--- NOTE | 2024-04-22 10:58 | CA_ITS ---
Patient Name: MOHINI CABELLO MR#: [id number] : 1995 Exam Date: 04/22/2024 Ordering Doctor: Shaikh Mine Gonzáles . ECHOCARDIOGRAM REPORT PROCEDURE: CA ECHO DOPPLER COMPLETE INDICATIONS: stroke, Right sided weakness, Hx: brain surgery age 6 COMPARISON: None. DESCRIPTION: COMPLETE ECHOCARDIOGRAM Real-time transthoracic echocardiography with 2D, M-mode, spectral and color flow Doppler performed. QUALITY: Technical quality was good. LEFT VENTRICLE: Normal chamber size. Normal left ventricular wall thickness. Global left ventricular systolic function is normal. LV EF: Estimated left ventricular ejection fraction is 60-65%. DIASTOLIC: Normal diastolic function. ATRIAL SEPTUM: Agitated saline contrast does not reveal an intra-cardiac shunt. LEFT ATRIUM: Normal chamber size. RIGHT ATRIUM: Normal chamber size. RIGHT VENTRICLE: Normal chamber size. Normal right ventricular systolic function. TRICUSPID VALVE: Normal mobility and thickness. No stenosis with mild regurgitation. No evidence of pulmonary hypertension. RVSP 30 mmHg MITRAL VALVE: Normal mobility and thickness. No evidence of mitral valve stenosis. Trivial mitral regurgitation. AORTIC VALVE: Normal trileaflet appearance. No visible sclerosis. Normal leaflet mobility. No aortic regurgitation. AORTIC ROOT: Normal diameter and appearance. PULMONIC VALVE: Normal thickness and mobility. No stenosis. Trivial regurgitation. PERICARDIUM: No evidence of pericardial effusion. IVC: Collapses with inspirations. Normal size. PLEURA: CONCLUSION: 1. Normal left ventricular size and systolic function. LVEF is 60 to 65%. 2. Normal right ventricular size and systolic function. 3. Normal diastolic function. 4. Mild tricuspid regurgitation. 5. Normal right-sided pressures. 6. No pericardial effusion. 7. No evidence of intracardiac shunt by agitated saline injection. Adult Echocardiography Procedure Report Left Ventricle LVEDD (3.7 - 5.6 cm): 4.25 cm LVESD (2.2 - 4.0 cm): 2.50 cm LVIVS thickness (0.6 - 1.2 cm): 0.88 cm LVPW thickness (0.5 - 1.0 cm): 0.80 cm e': 0.20 m/s E - e': 4.98 LVOT Max Gradient: 6.63 mm[Hg] LVOT Area (cm2): 1.29 m/s Peak Velocity (LVOT): 1.29 m/s Mean Velocity (LVOT): 0.80 m/s LVOT Diameter 2.06 cm Left Ventricular Ejection Fraction: 60-65 % Left Atrium LA Volume Index (2D A2C): 21.04 ml/m2 Left Atrium Systolic Dimension: 3.60 cm Mitral Valve MV E to A Ratio: 2.06 Mitral Valve A-Wave Peak Velocity: 0.47 m/s Mitral Valve E-Wave Peak Velocity: 0.97 m/s Right Ventricle RV Internal Diastolic Dimension: 3.67 cm Aorta AO Root Diam: 2.63 cm Ascending Ao Diam: 2.31 cm Aortic Valve AoV Area (Peak John Paul): 2.45 cm2, 2.45 cm2 AoV Area (VTI): 2.39 cm2, 2.39 cm2 Peak Velocity(Antegrade Flow): 1.75 m/s Peak Gradient(Antegrade Flow): 12.30 mm[Hg] Mean Velocity(Antegrade Flow): 1.10 m/s Mean Gradient(Antegrade Flow): 5.72 mm[Hg] Velocity Time Integral: 34.38 cm Tricuspid Valve Peak Velocity (Regurgitant Flow): 2.49 m/s, 2.60 m/s, 2.60 m/s Pulmonic Valve Mean Gradient: 3.58 mm[Hg], 3.30 mm[Hg] Mean Velocity: 0.89 m/s, 0.86 m/s Peak Velocity: 1.26 m/s Peak Gradient: 6.20 mm[Hg], 6.56 mm[Hg] Right Atrium Right Atrium Systolic Pressure: 58.54 ml, 58.54 ml Dictated by: Galileo Estrella M.D. on 04/22/2024 at 18:05 Approved by: Galileo Estrella M.D. on 04/22/2024 at 18:08
--- NOTE | 2024-04-22 12:01 | CM.NOTE ---
Rounds made with Dr. Gonzáles, awaiting bed for higher level of care. RN notified telestroke of worsening symptoms. Dr. Gonzáles discussed finding on MRI with pt, pt's , mother, and father. Dr. Gonzáles will call [facility] to see if any beds available. Mother is insistent pt is transferred to facility that has neurology available on staff. OT, PT, and speech therapy will evaluate pt today.
--- NOTE | 2024-04-22 15:19 | PM.IMPN1 ---
Progress Note: A&P Assessment and Plan (1) Ischemic stroke: Assessment and Plan: Sub acute ischemic stroke on MRI. No large vessel occlusion or stenosis on CTA head/neck C/w ASA, statin. PT/OT eval. SP evaluation recommended modified diet for dysphagia. Tele stroke on consult. Awaiting bed for transfer. Will need angiogram but can possibly be performed as outpatient. Close neurological monitoring with frequent neuro checks. Changed to inpatient as worsening neurological symptoms and needs continued inpatient monitoring (2) Neurological deficit present: Assessment and Plan: Due to stroke. PT/OT eval. Will need inpatient rehab (3) Hypertension: Assessment and Plan: Increase lisinopril to 20. BP above goal. No need for permissive HTN Qualifiers: Hypertension type: primary hypertension Qualified Code(s): I10 - Essential (primary) hypertension (4) HLD (hyperlipidemia): Assessment and Plan: Started on Lipitor. Outpatient LFTs/lipid in 6 weeks Qualifiers: Hyperlipidemia type: mixed hyperlipidemia Qualified Code(s): E78.2 - Mixed hyperlipidemia Internal Medicine - PN: Subj Subjective Interval history: Seen and examined. Patient overnight with worsening neurological symptoms. Feels weak overall with worsening dysphagia, dysarthria. Exam Constitutional Vital Signs, click to edit/add: Last Vital Signs Temp 97.6 F 04/22/24 11:52 Pulse 81 04/22/24 14:00 Resp 18 04/22/24 11:52 BP 154/77 H 04/22/24 11:52 Pulse Ox 100 04/22/24 11:53 O2 Del Method Room Air 04/22/24 11:52 Common normals: no apparent distress and oriented x3 General appearance: cooperative and comfortable Eye Other: unequal pupils, left pupil is about 5 mm, right pupil 3 mm Respiratory Common normals: normal respiratory effort, no use of accessory muscles and clear to auscultation bilaterally Effort & inspection: able to speak in complete sentences Cardio Common normals: no JVD, regular rate, regular rhythm, S1 normal heart sound and S2 normal heart sound GI Common normals: Normal to inspection, nondistended, normoactive bowel sounds present, soft to palpation, non-tender and no hepatosplenomegaly Extremity Common normals: normal to inspection and full ROM Neuro Common normals: oriented x3, moves all extremities and no sensory deficits noted Coordination/balance: [id number] test normal and Romberg test positive Speech: abnormal speech Details: stuttering Gait (neuro): ataxic Motor exam: strength abnormal Other: facial asyemmtery noted. Internal Medicine - PN: Obj Da Labs Labs: Laboratory Results - last 24 hr 04/22/24 05:07 WBC 7.4 RBC 4.91 Hgb 13.9 L Hct 42.5 MCV 86.6 MCH 28.3 MCHC 32.7 RDW 13.2 Plt Count 234 MPV 9.9 Neut % (Auto) 52.8 Lymph % (Auto) 31.1 [place] % (Auto) 9.7 Eos % (Auto) 5.8 Baso % (Auto) 0.3 Neut # (Auto) 3.9 Lymph # (Auto) 2.3 [place] # (Auto) 0.7 Eos # (Auto) 0.4 Baso # (Auto) 0.0 Abs Immat Gran (auto) 0.02 Imm/Tot Granulo (auto) 0.3 Sodium 138 Potassium 3.8 Chloride 102 Carbon Dioxide 28.2 Anion Gap 11.6 BUN 9.0 Creatinine 0.84 Est GFR ( Amer) >60 Est GFR (Non-Af Amer) >60 BUN/Creatinine Ratio 10.7 Glucose 101 Calcium 9.0 Phosphorus 3.5 Magnesium 1.9 Total Bilirubin 0.4 AST 15 ALT 26 Alkaline Phosphatase 71 Total Protein 6.8 Albumin 3.6 Globulin 3.2 Albumin/Globulin Ratio 1.1
--- NOTE | 2024-04-22 15:29 | SWNOTE1 ---
Doctor stopped SW in hallway and they would like SW to look in to inpt rehab. Transfer is not being cancelled, but want to have another option. SW spoke to pt and family in room. SW explained to pt and family what inpt rehab entails. They voiced understanding. SW let them know the closest place SW is aware of is [facility]. Pt and family are in agreement to get the process started. Referral sent to [facility] rehab. Referral included face sheet, ED note, H&P, provider notes, case management report, nursing notes, diagnostic imaging, med list, and PT/OT notes. SW called and left a message for Ingrid at [facility] rehab.
[2024-04-22] MEDS: ACETAMINOPHEN 1,000 MG/100 ML PREMIX 400 MG IV (15:38)
[2024-04-22] MEDS: ASPIRIN 81 MG TAB.CHEW PO (15:39)
--- NOTE | 2024-04-22 15:44 | XR_ITS ---
The [address] [address] Patient Name: MOHINI CABELLO MRN: [id number] date: 1995 Sex: M Assigned Patient Location: [place] Current Patient Location: Accession/Order Number: [id number] Exam Date: 04/22/2024 17:14 Report Date: 04/22/2024 17:30 At the request of: SHAIKH LISSY Procedure: XR chest 1V EXAM: XR chest 1V at 1706 hours HISTORY: SOB COMPARISON: 04/21/2024 TECHNIQUE: AP upright portable chest x-ray FINDINGS: The heart is borderline enlarged without overt cardiac decompensation. There is been interval clearing of the left lung base. Patchy opacity at the right lung base medially indicates focal atelectasis or infiltrate. The upper lungs are clear and there is no evidence of an effusion or pneumothorax. The osseous structures are grossly intact. XR/XR chest 1V IMPRESSION: While there is been some improved aeration at the left lung base, increasing opacity at the right lung base indicates a small amount of atelectasis or infiltrate. There is no evidence of overt cardiac decompensation. Electronically authenticated by: HAYDEE ABDI Date: 04/22/2024 17:30
[2024-04-22 16:30] LABS: Adenovirus NOT DETECTED (NOT DETECTE); Bordetella parapertussis NOT DETECTED (NOT DETECTE); Coronavirus 229E NOT DETECTED (NOT DETECTE); Coronavirus HKU1 NOT DETECTED (NOT DETECTE); Coronavirus NL63 NOT DETECTED (NOT DETECTE); Coronavirus OC43 NOT DETECTED (NOT DETECTE); Human Metapneumovirus NOT DETECTED (NOT DETECTE); Human Rhinovirus/Enterovirus NOT DETECTED (NOT DETECTE); Influenza A NOT DETECTED (NOT DETECTE); Influenza B NOT DETECTED (NOT DETECTE); Mycoplasma pneumoniae NOT DETECTED (NOT DETECTE); Parainfluenza Virus 1 NOT DETECTED (NOT DETECTE); Parainfluenza Virus 2 NOT DETECTED (NOT DETECTE); Parainfluenza Virus 3 NOT DETECTED (NOT DETECTE); Parainfluenza Virus 4 NOT DETECTED (NOT DETECTE); Respiratory Syncytial Virus NOT DETECTED (NOT DETECTE); SARS-CoV-2 NOT DETECTED (NOT DETECTE)
--- NOTE | 2024-04-22 17:07 | P.DS_ITS ---
DS: Providers Provider Date of admission: 04/22/24 10:03 Primary care physician: Harsh Alcantar DO Admitting clinician: Shaikh Nivia Attending physician on admission: Shaikh Nivia Consults: 04/21/24 04:55 Consult to TeleNeurology Routine Reason for consultation: Right leg weakness 04/21/24 06:28 Consult to Telestroke Routine Reason for consultation: suspected CVA 04/21/24 06:29 Occupational Therapy Eval and Treat Routine Reason for consultation: WEAKNESS Physical Therapy Eval and Treat Routine Reason for consultation: WEAKNESS 04/21/24 18:35 Occupational Therapy Eval and Treat Routine Reason for consultation: weakness Physical Therapy Eval and Treat Routine Reason for consultation: weakness Speech Therapy Eval and Treat Routine Reason for consultation: dysphagia Attending physician on discharge: Shaikh Nivia Discharging clinician: Shaikh Nivia DS: Diagnosis Discharge Diagnosis (1) Ischemic stroke: (2) Neurological deficit present: (3) Hypertension: Qualifiers: Hypertension type: primary hypertension Qualified Code(s): I10 - Essential (primary) hypertension (4) HLD (hyperlipidemia): Qualifiers: Hyperlipidemia type: mixed hyperlipidemia Qualified Code(s): E78.2 - Mixed hyperlipidemia (5) Ethmoid sinusitis: (6) Fever determined by examination: DS: Summary Time Spent with Patient Time attestation: Total time spent providing and/or coordinating discharge services: Exam Constitutional Vital Signs, click to edit/add: Last Vital Signs Temp 100.0 F 04/22/24 15:53 Pulse 103 H 04/22/24 16:00 Resp 18 04/22/24 15:53 BP 170/90 H 04/22/24 15:53 Pulse Ox 94 L 04/22/24 15:53 O2 Del Method Room Air 04/22/24 15:53 DS: Data Data Completed and Pending Labs on day of discharge: Labs from last 24 hours 04/22/24 05:07 WBC 7.4 RBC 4.91 Hgb 13.9 L Hct 42.5 MCV 86.6 MCH 28.3 MCHC 32.7 RDW 13.2 Plt Count 234 MPV 9.9 Neut % (Auto) 52.8 Lymph % (Auto) 31.1 [place] % (Auto) 9.7 Eos % (Auto) 5.8 Baso % (Auto) 0.3 Neut # (Auto) 3.9 Lymph # (Auto) 2.3 [place] # (Auto) 0.7 Eos # (Auto) 0.4 Baso # (Auto) 0.0 Abs Immat Gran (auto) 0.02 Imm/Tot Granulo (auto) 0.3 Sodium 138 Potassium 3.8 Chloride 102 Carbon Dioxide 28.2 Anion Gap 11.6 BUN 9.0 Creatinine 0.84 Est GFR ( Amer) >60 Est GFR (Non-Af Amer) >60 BUN/Creatinine Ratio 10.7 Glucose 101 Calcium 9.0 Phosphorus 3.5 Magnesium 1.9 Total Bilirubin 0.4 AST 15 ALT 26 Alkaline Phosphatase 71 Total Protein 6.8 Albumin 3.6 Globulin 3.2 Albumin/Globulin Ratio 1.1 Discharge Plan Discharge Condition: Fair Discharge Medications: No Action lisinopril 10 mg tablet 10 mg PO .QD Print Language: Faroese
== END 2024-04-22 18:20 | disposition short-term general hospital (02) | DRG 65 ==
LOC: ER 04:55 → MS 04-22 06:52
PROVIDERS: Registered Nurse; Admitting Provider Internal Medicine; Emergency Provider Emergency Medicine; PCP Internal Medicine; Visit Provider Internal Medicine
DX: I63.9 Cerebral infarction, unspecified (principal); G81.93 Hemiplegia, unspecified affecting right nondominant side; Z85.841 Personal history of malignant neoplasm of brain; I10 Essential (primary) hypertension; E78.2 Mixed hyperlipidemia; R50.9 Fever, unspecified; R13.10 Dysphagia, unspecified; R47.1 Dysarthria and anarthria; R27.0 Ataxia, unspecified; R20.2 Paresthesia of skin; R29.810 Facial weakness; R29.705 NIHSS score 5; Z92.21 Personal history of antineoplastic chemotherapy; Z92.3 Personal history of irradiation; Z79.82 Long term (current) use of aspirin; J32.2 Chronic ethmoidal sinusitis
CPT/HCPCS: 0202U; 36415; 70030; 70450; 70496; 70498; 70553; 71045; 80048; 80053; 80061; 81001; 82607; 82746; 83036; 83735; 84100; 85025; 85610; 85730; 87040; 92610; 93005; 93306; 93356; 94761; 96365; 96366; 96375; 97161; 97165; 97530; 99285; A9575; G0378; J0131; J1170; J2270; Q3014; Q9967

== ENCOUNTER 2024-05-16 08:42 | Outpatient (RCR) | payer OTHER, SELFPAY | END 2024-05-17 13:39 | disposition home or self-care (01) | LOC: PT 08:42 | PROVIDERS: PCP Internal Medicine | DX: I63.211 Cerebral infarction due to unspecified occlusion or stenosis of right vertebral artery (principal) | CPT/HCPCS: 97110; 97161 ==

== ENCOUNTER 2024-05-17 10:51 | Outpatient (RCR) | payer OTHER, SELFPAY | END 2024-06-12 13:40 | disposition home or self-care (01) | LOC: OT 10:51 | PROVIDERS: PCP Internal Medicine | DX: I63.211 Cerebral infarction due to unspecified occlusion or stenosis of right vertebral artery (principal) | CPT/HCPCS: 97110; 97166; 97530 ==